=== PATIENT | female | born 1990 | race Two or more races ===

== ENCOUNTER 2018-08-19 17:55 | Emergency (ER) | payer OTHER, MEDICAID ==
[~2018-08-19] VITALS: Ht 162.6 cm; Wt 89.8 kg
--- NOTE | 2018-08-19 18:00 | NUR ---
ED Nurse Note: FHT 140/min.
[2018-08-19 18:15] VITALS: BP 112/91
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
--- NOTE | 2018-08-19 18:20 | NUR ---
ED Nurse Note: Justin at the bed side for US procedure.
[2018-08-19 18:23] LABS: BASOPHILS % (AUTO) 0.9 % (0.0-2.0); EOSINOPHILS % (AUTO) 1.9 % (0.0-3.0); HEMATOCRIT 36.5 % (37.0-47.0); HEMOGLOBIN 12.4 G/DL (12.0-16.0); LYMPHOCYTES % (AUTO) 33.4 % (20.0-45.0); MEAN CORPUSCULAR VOLUME 89 FL (80-99); MONOCYTES % (AUTO) 7.5 % (1.0-10.0); NEUTROPHILS % (AUTO) 56.3 % (45.0-75.0); PLATELET COUNT 211 K/UL (150-450); RED CELL DISTRIBUTION WIDTH 11.7 % (11.6-14.8); WHITE BLOOD COUNT 11.4 K/UL (4.8-10.8)
--- NOTE | 2018-08-19 18:25 | NUR ---
ED Nurse Note: Dr Noonan at the bed side.
[2018-08-19 18:41] LABS: ANION GAP 10 mmol/L (5-15); BLOOD UREA NITROGEN 3 mg/dL (7-18); CALCIUM 8.8 MG/DL (8.5-10.1); CARBON DIOXIDE 24 MMOL/L (21-32); CHLORIDE 103 MMOL/L (98-107); CREATININE 0.8 MG/DL (0.55-1.30); SODIUM 137 MMOL/L (136-145)
--- NOTE | 2018-08-19 18:42 | NUR ---
ED Nurse Note: Neck collar applied by Mayuri per ERMD order.
[2018-08-19] MEDS ORDERED: Hydrogen Peroxide 473ml Bottle TOPIC ONE (18:45)
[2018-08-19 18:46] LABS: ALANINE AMINOTRANSFERASE 20 U/L (12-78); ALBUMIN 3.4 G/DL (3.4-5.0); ALBUMIN/GLOBULIN RATIO 0.9 (1.0-2.7); ALKALINE PHOSPHATASE 62 U/L (46-116); ASPARTATE AMINO TRANSFERASE 17 U/L (15-37); BILIRUBIN,TOTAL 0.4 MG/DL (0.2-1.0)
--- NOTE | 2018-08-19 19:00 | NUR ---
ED Nurse Note: Called CT and spoke to Theo to ff up with CT procedure. US done.
--- NOTE | 2018-08-19 19:11 | NUR ---
HAND-OFF: Report given to Aron ZAMORA.
--- NOTE | 2018-08-19 19:56 | NUR ---
ED Nurse Note: Clean the wounds with NS, cover with dressing.
[2018-08-19] MEDS ORDERED: Bacitracin Oint UD TOPIC ONE (22:15)
--- NOTE | 2018-08-19 22:39 | NUR ---
ED Nurse Note: Pt refused to transfer another hospital, Pt signed AMA form and states she will go to her own OBGYN MD tomorrow. Boyfriend is on bedside.
[2018-08-19] MEDS ORDERED: CEPHALEXIN500 MG ORAL (23:17)
[2018-08-19] MEDS ORDERED: BACITRACIN15 GM TOPIC (23:17)
--- NOTE | 2018-08-19 23:30 | NUR ---
ED Nurse Note: Pt is AO x 4times, VSS, on room air no distress. ID bend and IV site removed. Belongings given to Pt. Pt walked out unit with steady gait with boyfriend, boyfriend will drive home.
[2018-08-19 23:31] VITALS: BP 120/84
[2018-08-19 23:33] VITALS: BP 120/84
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
== END 2018-08-19 23:34 | disposition short-term general hospital (02) ==
LOC: EMR 18:07
DX: O26.92 Pregnancy related conditions, unspecified, second trimester (principal); O26.892 Other specified pregnancy related conditions, second trimester; R55 Syncope and collapse; Z3A.23 23 weeks gestation of pregnancy; S09.8XXA Other specified injuries of head, initial encounter; S01.81XA Laceration without foreign body of other part of head, initial encounter; S02.2XXA Fracture of nasal bones, initial encounter for closed fracture; W19.XXXA Unspecified fall, initial encounter; Y92.89 Other specified places as the place of occurrence of the external cause
CPT/HCPCS: 36415; 70450; 70486; 72125; 76805; 80053; 82962; 84702; 85025; 85610; 85730; 86850; 86900; 86901; 93005; 99284